=== PATIENT | male | born 1970 | race Caucasian/White ===

== ENCOUNTER 2019-05-26 07:03 | Inpatient (IN) ==
[2019-05-19 18:21] LABS: Appearance,Urine CLEAR; Bilirubin,Urine NEG (NEG); Color,Urine STRAW; Culture Indicated,Urine NO; Glucose,Urine (UA) NEGATIVE (NEG); Ketones,Urine 5/TR mg/dL (NEG); Leukocyte Esterase,Urine NEG /uL (NEG); Nitrate,Urine NEG (NEG); Protein,Urine NEG (NEG); Urine Blood NEG mg/dL (<0.03); Urobilinogen,Urine NEG (NEG)
[2019-05-19 20:22] LABS: Prothrombin Time 13.5 sec (11.9-14.5)
[2019-05-19 20:28] LABS: Basophils # (Auto) 0 K/mcL (0.0-0.3); Basophils % (Auto) 0.2 % (0.0-2.0); Eosinophils # (Auto) 0.1 K/mcL (0.0-0.7); Granulocytes % (Auto) 64.5 % (38.0-78.0); Hematocrit 43.3 % (41.0-55.0); Hemoglobin 14.3 g/dL (13.5-16.5); Lymphocytes # (Auto) 1.6 K/mcL (1.5-4.8); Lymphocytes % (Auto) 27.2 % (15.5-49.0); Mean Cell Volume 94.1 fL (80.0-100.0); Mean Platelet Volume 7.8 fL (7.4-10.4); Monocytes # (Auto) 0.4 K/mcL (0.1-0.9); Monocytes % (Auto) 7.1 % (1.0-12.0); Platelet Count 249 K/mcL (140-440); Red Cell Distribution Width 13.6 % (11.5-14.5); WBC 6.1 K/mcL (4.5-11.0)
[2019-05-19 20:35] LABS: Blood Urea Nitrogen 21 mg/dl (6-20); Calcium 9.9 mg/dl (8.6-10.4); Carbon Dioxide 26 mmol/L (22-30); Chloride 96 mmol/L (96-108); Glomerular Filtration Rate 117; Glucose 89 mg/dL (70-105)
[~2019-05-26 07:03] MED LIST: 0.9 % SODIUM CHLORIDE 9 ML, KETOROLAC 30 MG, ROPIVACAINE HCL/PF 49.5 ML, EPINEPHrine 0.... IJ SCH; ACETAMINOPHEN 500 MG TABLET PO SCH; CELECOXIB 200 MG CAPSULE PO SCH; IPRATROPIUM/ALBUTEROL 3 ML AMPUL.NEB NEB PRN; PREGABALIN 75 MG CAPSULE PO SCH; SCOPOLAMINE 1 PATCH PATCH TOPICAL PRN; VANCOMYCIN 2,000 MG in 0.9 % SODIUM CHLORIDE 500 ML IV SCH; ceFAZolin 3 GM in DEXTROSE 5% IN WATER 50 ML IV SCH; oxyCODONE 10 MG TAB.ER.12H PO SCH
[2019-05-26] MEDS ORDERED: GENTAMICIN SULFATE 800 MG/20 ML VIAL IR ONE (08:39)
[2019-05-26] MEDS ORDERED: ONDANSETRON 4 MG/2 ML VIAL IV ONE (09:22)
[2019-05-26] MEDS ORDERED: TRANEXAMIC ACID 1,000 MG/10 ML VIAL IV ONE (09:22)
[2019-05-26] MEDS ORDERED: DEXAMETHASONE 10 MG/ML VIAL IV ONE (09:22)
[2019-05-26] MEDS ORDERED: LIDOCAINE HCL/PF 100 MG/5 ML SYRINGE IV ONE (09:22)
[2019-05-26] MEDS ORDERED: KETAMINE 100 MG/ML ML IV ONE (09:22)
[2019-05-26] MEDS ORDERED: ePHEDrine 50 MG/ML AMPUL IV ONE (09:22)
[2019-05-26] MEDS ORDERED: PROPOFOL 200 MG/20 ML VIAL IV ONE (09:22)
[2019-05-26] MEDS ORDERED: HYDROmorphone 2 MG/ML VIAL IV PRN ×2 (10:40→10:55)
[2019-05-26] MEDS ORDERED: NALOXONE HCL 0.4 MG/ML VIAL IV PRN (10:40)
[2019-05-26] MEDS ORDERED: IPRATROPIUM/ALBUTEROL 3 ML AMPUL.NEB NEB PRN (10:40)
[2019-05-26] MEDS ORDERED: LACTATED RINGERS 250 ML IV PRN (10:40)
[2019-05-26] MEDS ORDERED: diphenhydrAMINE 50 MG/ML VIAL IV PRN (10:40)
[2019-05-26] MEDS ORDERED: PROMETHAZINE 25 MG/ML VIAL IV PRN (10:40)
[2019-05-26] MEDS ORDERED: BENZOCAINE/MENTHOL 1 LOZENGE PO PRN ×2 (10:40→10:55)
[2019-05-26] MEDS ORDERED: MEPERIDINE 25 MG/ML SYRINGE IV PRN (10:40)
[2019-05-26] MEDS ORDERED: fentaNYL 100 MCG/2 ML VIAL IV PRN (10:40)
[2019-05-26] MEDS ORDERED: ePHEDrine 50 MG/ML AMPUL IV PRN (10:40)
[2019-05-26] MEDS ORDERED: ONDANSETRON 4 MG/2 ML VIAL IV PRN ×2 (10:40→10:55)
[2019-05-26] MEDS ORDERED: LACTATED RINGERS 1,000 ML IV SCH (10:45)
[2019-05-26] MEDS ORDERED: POLYETHYLENE GLYCOL 3350 17 GM PACKET PO PRN (10:55)
[2019-05-26] MEDS ORDERED: MAGNESIUM HYDROXIDE 30 ML ORAL.SUSP PO PRN (10:55)
[2019-05-26] MEDS ORDERED: FLEETS ADULT ENEMA PR PRN (10:55)
[2019-05-26] MEDS ORDERED: BISACODYL 10 MG SUPP.RECT PR PRN (10:55)
[2019-05-26] MEDS ORDERED: TRANEXAMIC ACID 1,000 MG/10 ML VIAL IV SCH (10:55)
[2019-05-26] MEDS ORDERED: ACETAMINOPHEN 325 MG TABLET PO PRN (10:55)
--- NOTE | 2019-05-26 10:55 | Brief Operative Note ---
Date of procedure: 05/26/19 Pre-op diagnosis: Right hip djd severe Post-op diagnosis: same Procedure: Right total hip Grafts/Implants: Yes Anesthesia: GETA Surgeon: Pawel Moncada Administrative Support Associate: Daquan Peter Estimated blood loss (cc): 100 Specimens Removed/Pathology: none sent Condition: stable Disposition: PACU
--- NOTE | 2019-05-26 11:54 | XRay Report ---
CLINICAL INFORMATION: Right total hip arthroplasty TECHNIQUE: AP pelvis. AP and lateral right hip. COMPARISON: Previous examination dated 03/10/2019 FINDINGS: Status post right total hip arthroplasty. Anatomic alignment demonstrated. There is postsurgical soft tissue gas. Previous left total hip arthroplasty. Pelvis, sacrum, sacroiliac joints are unremarkable. IMPRESSION: Bilateral total hip arthroplasties. Anatomic alignment demonstrated. Interpreted and Authenticated by: Keanu Segovia 05/26/19
--- NOTE | 2019-05-26 12:53 | XRay Report ---
CLINICAL INFORMATION: Right hip replacement TECHNIQUE: AP portable intraoperative pelvis COMPARISON: Preoperative evaluation dated 03/10/2019 FINDINGS: Intraoperative AP pelvis obtained during right total hip arthroplasty. IMPRESSION: Intraoperative evaluation as above Interpreted and Authenticated by: Keanu Segovia 05/26/19
--- NOTE | 2019-05-26 12:54 | Operative Note ---
DATE OF OPERATION: 05/26/2019 PREOPERATIVE DIAGNOSIS: Right hip degenerative arthritis. POSTOPERATIVE DIAGNOSIS: Right hip degenerative arthritis. PROCEDURE: Right total hip arthroplasty using Herman components. Component sizes were a size 7 stem, a +2.5 neck length on a 36 mm ceramic ball with a 56 mm cup with a 30 mm screw, a hooded liner. COMPLICATIONS: None. SURGEON: Pawel Moncada MD WEATHER ANCHOR: Daquan Peter PA-C. This provider's expertise and technical skill were required throughout the case. The DARIEL assisted with preoperative coordination, intraoperative retraction, wound closure, dressing and splint application, as well as postoperative documentation and care coordination. ANESTHESIA: General LMA anesthesia. COMPLICATIONS: None. DESCRIPTION OF PROCEDURE: The patient was brought to the operating room and put to sleep with general LMA anesthesia. Once asleep, the patient had a timeout performed confirming the operative site as the right side by initials, consent form and x-ray. Once this had been done, we then also confirmed the patient had received antibiotics and tranexamic acid. Once done, we then proceeded with the case. Ioban was placed over the skin to protect it from the operative field. A superior approach was performed to the right hip. This confirmed alignment and position. We then opened the capsule of the gluteus jefferson. This was then retracted using a Charnley retractor. We released the superior capsule posteriorly and piriformis. This was subluxed superiorly. We made our neck cut at the pre-templated neck length and then removed the ball. The hip was subluxed anteriorly, we removed the remnants of the labrum and reamed up to the size for the cup appropriate line to line. We tapped the cup into position. This was placed at 40 degrees of inclination and 15 degrees of anteversion. Once done, we then placed a hooded liner inferior posteriorly. We irrigated thoroughly, removed the spurs and a 30 mm screw was placed. Also, we prepared the stem side. The stem was broached up for the stem in 15 degrees of anteversion. We then trialed this and confirmed position and leg length with x-ray. We then placed a small amount of cement on the distal end of the stem. This was tapped into place with a cementless proximal portion. Once done, we then placed the ceramic ball neck length 2.5. This was reduced and very stable through the full arc of motion up to 70 to 80 degrees of rotation with hip at 90 degrees and adducted. Once we confirmed stability we irrigated thoroughly and then we closed the capsule with a #1 Ethibond and we closed the fascial layer with #1 Stratafix. Skin was closed with Stratafix and adhesive closure. The patient tolerated this well. Sterile bandage applied. Blood loss about 100 mL. RBH:bruno Job ID: [id number] Doc ID: [id number] Pawel Moncada MD
[2019-05-26] MEDS: LACTATED RINGERS 1,000 ML IV SCH (15:01)
[2019-05-26] MEDS: ceFAZolin 1 GM VIAL IV SCH (17:52)
[2019-05-26] MEDS: 0.9 % SODIUM CHLORIDE 10 ML SYRINGE IV SCH ×2 (17:53→21:49)
[2019-05-26] MEDS: HYDROcodone/APAP 10/325MG TABLET PO PRN ×2 (19:22→19:57)
[2019-05-26] MEDS: KETOROLAC 15 MG/ML VIAL IV PRN (19:22)
[2019-05-26] MEDS ORDERED: SENNOSIDES 1 TABLET PO SCH (21:00)
[2019-05-26] MEDS ORDERED: TEMAZEPAM 15 MG CAPSULE PO PRN (21:00)
[2019-05-26] MEDS: DOCUSATE SODIUM 100 MG CAPSULE PO SCH (21:45)
[2019-05-26] MEDS: ASPIRIN 325 MG ENTERIC COATED TABLET PO SCH (21:46)
[2019-05-27] MEDS: LACTATED RINGERS 1,000 ML IV SCH (01:03)
[2019-05-27] MEDS: HYDROcodone/APAP 10/325MG TABLET PO PRN ×4 (01:05→13:27)
[2019-05-27] MEDS: ceFAZolin 1 GM VIAL IV SCH (01:23)
[2019-05-27] MEDS: KETOROLAC 15 MG/ML VIAL IV PRN ×2 (05:18→11:02)
[2019-05-27] MEDS: 0.9 % SODIUM CHLORIDE 10 ML SYRINGE IV SCH (05:31)
--- NOTE | 2019-05-27 07:57 | Orthopedic Progress Note ---
Subjective Patient information: Note initiated : 05/27/19 at 7:56 am Service Date, if different from initiated Date: [] Patient: Sal Thakkar 48 y/o M admitted on 05/26/19 for Right Total Hip Arthroplasty . Chief Complaint: [Pt is stable this morning on post operative day 1 without any significant concerns or complaints. Patients vital signs have remained stable. Patients dressing is dry and is grossly intact from a neurovascular and motor standpoint. Patients 10 point ROS is otherwise negative. ] Objective Vital signs: Vital Signs Temp Pulse Resp BP Pulse Ox 05/27/19 02:39 98.7 F 102 H 18 127/83 97 05/26/19 23:00 98.6 F 113 H 18 141/84 97 05/26/19 21:10 98.7 F 115 H 97 05/26/19 20:23 99.7 F H 05/26/19 19:34 99.9 F H 125 H 16 123/73 96 05/26/19 17:00 99 05/26/19 16:00 98.5 F 109 H 18 147/88 96 05/26/19 15:00 96 05/26/19 14:35 94 H 16 139/83 96 05/26/19 13:35 98 H 16 141/84 97 05/26/19 13:05 98 H 16 132/80 97 05/26/19 13:00 99 05/26/19 12:35 71 16 129/83 97 05/26/19 12:20 74 16 134/76 97 05/26/19 12:05 85 16 131/71 96 05/26/19 11:49 97.6 F 71 16 128/78 99 05/26/19 11:27 97.0 F 74 13 124/75 99 05/26/19 11:12 97.0 F 75 13 124/64 100 05/26/19 11:07 71 14 132/71 99 05/26/19 11:02 66 15 124/80 100 05/26/19 10:52 97.3 F 90 18 123/76 98 05/26/19 08:00 97.5 F 92 H 18 143/89 97 Intake and Output 05/26/19 05/27/19 05/27/19 21:59 05:59 13:59 Intake Total 360 2840 542 Output Total 1500 2550 Balance -1140 290 542 Intake: IV 1000 542 Lactated Ringers 1,000 ml @ 100 1000 542 mls/hr IV .Q10H ARIELLE Rx#: [id number] Oral 360 1840 Output: Void Amount 1500 2550 Other: Meal Lunch Nourishment/Supplement Percent of Meal Consumed 75% 100% Feeding Ability Independent Nourishment/Supplement name Sugar free Applesauce Urine Appearance Clear Clear Urine Color Bright Yellow Bright Yellow Urine Odor Normal Normal Weight 288 lb 11.2 oz Intake & Output: Intake & Output 05/26/19 05/27/19 05/27/19 21:59 05:59 13:59 Intake Total 360 2840 542 Output Total 1500 2550 Balance -1140 290 542 Weight 288 lb 11.2 oz Intake: IV 1000 542 Lactated Ringers 1,000 ml @ 100 1000 542 mls/hr IV .Q10H ARIELLE Rx#: [id number] Oral 360 1840 Output: Void Amount 1500 2550 Other: Meal Lunch Nourishment/Supplement Percent of Meal Consumed 75% 100% Feeding Ability Independent Nourishment/Supplement name Sugar free Applesauce Urine Appearance Clear Clear Urine Color Bright Yellow Bright Yellow Urine Odor Normal Normal Incision: Yes healing Incision clean and dry: Yes Dressing: Yes clean Weight bearing status: full Neurological exam IM: Yes motor sensory intact, Yes neurovascular intact Extremities exam IM: Yes Foot pink and warm, Yes neurovascular intact - Labs CBC & BMP: 05/27/19 04:35 05/19/19 14:38 Labs: Orthopedic Labs 05/19/19 14:38 PT 13.5 INR 1.0 APTT 32 05/27/19 05/19/19 04:35 14:38 Hgb 14.3 Hct 30.6 L 43.3 Assessment and Plan (1) Hx of total hip arthroplasty The patient has been educated regarding dressing care, Physical Therapy recommendations, home exercises, restrictions, and follow up appointments. The patient has had all necessary DME prescribed. The patient has remained relatively stable during their hospital course. Leave Dermabond patch intact until followup Status: Acute
--- NOTE | 2019-05-27 07:59 | Discharge Summary ---
Ortho Discharge - [facility] - Patient Instructions Diet: Regular Diet Activity: activity as tolerated, weight bearing as tolerated Total Hip Protocol: Follow activity instructions as provided by Physical Therapy. Dressing Care: May shower in 2 days - Problem Maintenance (1) Hx of total hip arthroplasty Status: Acute - Follow Up Plan Follow Up Appointments: Daquan Peter PA-C [Physician Smoke Control Supervisor] - 06/10/19 1:40 pm Disposition: Home, Self-Care Prognosis: Good Rehab Potential: Good I certify that the patient requires SNF services: No Overall status at discharge: patient is progressing back to baseline - Orders For Discharge Prescriptions: Docusate Sodium [Colace] 100 mg PO BID #60 cap Transmission Status: Pending to [facility] Aspirin [Ecotrin] 325 mg PO BID #60 tab.ec Transmission Status: Pending to [facility] HYDROcodone/APAP 10/325MG [[place] 10-325Mg] 1 - 2 tab PO Q4HP PRN #75 tab PRN Reason: Per Pain Protocol Prescription Printed
[2019-05-27] MEDS: ASPIRIN 325 MG ENTERIC COATED TABLET PO SCH (09:54)
[2019-05-27] MEDS: DOCUSATE SODIUM 100 MG CAPSULE PO SCH (09:54)
[2019-05-27] MEDS ORDERED: FLU VACC QS2019-20(6MOS UP)/PF 60 MCG/0.5 ML SYRINGE IM ONE (10:00)
== END 2019-05-27 16:30 | disposition home or self-care (01) | DRG 470 ==
LOC: MEDSUR 07:03
PROVIDERS: ADMIT Orthopaedic Surgery; ATTEND Orthopaedic Surgery